=== PATIENT | female | born 1955 | race Caucasian/White ===

== ENCOUNTER → 2016-11-20 | Outpatient (CLI) | payer OTHER, BC ==
[~2016-11-20] MED LIST: ASPI-232 PO; BUPR-79 PO; CETI10CH PO; CHOL100010 PO; CITA40TA12 PO; GABA-113 PO; HYDR-3419 PO; METO-217 PO; MULT-506 PO; NAPR1TAB9 PO; OMEG10007 PO; POTA1080 PO; POTATAB2 PO; PRAV20TA PO; PRLSR20 PO; TPRSR100 PO; TRAZ50TA35 PO; VITA1TAB4 PO; VITA400C15 PO
--- NOTE | 2016-11-20 13:23 | DIAGNOSTIC IMAGING REPORT ---
KUB CLINICAL HISTORY: R32 Urinary [id number] pain. Nephrocalcinosis. COMPARISON STUDY: 07/17/2016 FINDINGS: Nonobstructive bowel pattern. Right kidney is partially obscured to overlying bowel content. Possible punctate nonobstructing upper pole left renal calcifications. Several surgical clips right upper quadrant presumably from prior cholecystectomy. IMPRESSION: Several upper pole left renal calcifications. Study is otherwise negative within limitations of overlying bowel content. The above report was generated using voice recognition software. It may contain grammatical, syntax or spelling errors. Electronically signed by: Igor Luna M.D. 11/20/2016 1:21 PM Dictated Date/Time: 11/20/2016 1:20 PM
== END | disposition home or self-care (01) ==
LOC: C.RAD 12:54
PROVIDERS: ATTEND Urology
DX: R32 Unspecified urinary incontinence (principal)

== ENCOUNTER → 2016-11-20 | Outpatient (CLI) | payer OTHER, BC ==
--- NOTE | 2016-11-20 16:39 | DIAGNOSTIC IMAGING REPORT ---
TWO VIEW CHEST CLINICAL HISTORY: Nephrolithiasis. Preoperative examination. FINDINGS: PA and lateral chest radiographs are compared to study dated 12/14/2014. The heart is top normal for projection. There is mild atherosclerotic calcification of the thoracic aorta. Chronic interstitial thickening is similar to previous. No airspace consolidation or pleural effusion is identified. There is no pneumothorax. The skeletal structures are osteopenic. The bony thorax appears intact. Cholecystectomy clips are identified. IMPRESSION: No active disease in the chest. Electronically signed by: David Chappell M.D. 11/20/2016 4:37 PM Dictated Date/Time: 11/20/2016 4:37 PM
[2016-11-20 17:15] LABS: BASO % 0.3 %; BASO ABS # 0.02 K/uL (0-0.2); COMPLETE YES; EOS % 1.5 %; HEMATOCRIT 42.4 % (37-47); IG% 0.2 %; LYMPH % 39.7 %; LYMPH ABS # 2.45 K/uL (1.2-3.4); MEAN CELL VOLUME 94.2 fL (80-100); MEAN CORPUSCULAR HEMOGLOBIN 31.1 pg (25-34); MEAN PLATELET VOLUME 9.7 fL (7.4-10.4); MONO % 9.2 %; NEUT % 49.1 %; PLATELET COUNT 245 K/uL (130-400); WHITE BLOOD COUNT 6.17 K/uL (4.8-10.8)
[2016-11-20 17:35] LABS: BLOOD UREA NITROGEN 19 mg/dl (7-18); BUN/CREATININE RATIO 23.3 (10-20); CARBON DIOXIDE 28 mmol/L (21-32); CHLORIDE 105 mmol/L (98-107); CREATININE 0.81 mg/dl (0.60-1.20); POTASSIUM 3.8 mmol/L (3.5-5.1); SODIUM 141 mmol/L (136-145)
== END | disposition home or self-care (01) ==
LOC: C.LAB 15:51
PROVIDERS: ATTEND Urology
DX: N20.0 Calculus of kidney (principal)

== ENCOUNTER → 2016-11-30 | Outpatient (CLI) | payer OTHER, BC ==
[~2016-11-30] MED LIST changes: -METO-217 PO; -POTA1080 PO; -VITA400C15 PO
--- NOTE | 2016-11-30 18:43 | DIAGNOSTIC IMAGING REPORT ---
KUB HISTORY: NEPHROLITHIASIS COMPARISON: KUB 11/20/2016. FINDINGS: The bowel gas pattern is unremarkable. There are no dilated loops of small bowel to suggest an obstruction. Cholecystectomy. Multiple pelvic calcifications remain stable and likely represent phleboliths. No definite ureteral calculi. Bilateral nephrolithiasis, unchanged. Dominant stone within the lower pole of the right kidney measures 6 mm and dominant stone within the lower pole of the left kidney measures 5 mm. No pneumoperitoneum or pneumatosis. IMPRESSION: Stable bilateral nephrolithiasis. No ureteral calculi. Electronically signed by: Avtar Varela M.D. 11/30/2016 6:42 PM Dictated Date/Time: 11/30/2016 6:40 PM
== END | disposition home or self-care (01) ==
LOC: C.RAD 17:43
PROVIDERS: ATTEND Urology
DX: N20.0 Calculus of kidney (principal)

== ENCOUNTER → 2016-12-01 | Day surgery (SDC) | payer OTHER, BC ==
[2016-11-23 09:16] VITALS: Ht 154.9 cm; Wt 76.4 kg
[~2016-12-01] VITALS: Ht 154.9 cm; Wt 76.4 kg
[~2016-12-01] MED LIST changes: +ATROPINE SULFATE 0.1 MG/ML 5ML SYR IV PRN; +CIPROFLOXACIN 400MG / D5W IV SCH; +DEXAMETHASONE SOD INJ 4 MG/ML VIAL ONE; +EpHEDrine SULFATE INJ 50 MG/ML AMP IV PRN; +FENTANYL CITRATE INJ 50 MCG/1 ML 2 ML VIAL IV PRN; +FENTANYL CITRATE INJ 50 MCG/1 ML 2 ML VIAL ONE; +HYDROCODONE/ACETAMOPHEN 5/325MG TAB PO PRN; +LACTATED RINGER'S 1000ML 1,000 ML IV SCH; +LIDOCAINE HCL 2% 2 ML VIAL (20MG/ML) ONE; +MIDAZOLAM HCL 1 MG/ML 2ML VIAL ONE; +ONDANSETRON INJ 2 MG/ML 2 ML VIAL ONE; +PROPOFOL IV EMULSION 10 MG/ML 20 ML VIAL IV ONE; +SODIUM CHLORIDE 0.9% 1000ML 1,000 ML IV SCH
--- NOTE | 2016-12-01 08:43 | History & Physical Bridge Note ---
H&P Re-Evaluation Bridge Note: I have examined the patient, reviewed the History & Physical and in the interval since the performance of the History & Physical I have noted the following changes of clinical significance: No changes noted
--- NOTE | 2016-12-01 09:59 | Discharge Instructions-SurgCtr ---
Discharge Instructions Date of Service Dec 01, 2016. Visit Reason for Visit: Stones Discharge Discharge Diagnosis / Problem: stones Discharge Goals Goal(s): Decrease discomfort, Improve disease control, Prevent Disease Progression Medications Stopped Medications Name(s): HELD BABY ASPIRIN, FISH OIL AND ALEVE FOR 10 DAYS. Activity Recommendations Activity Limitations: resume your previous activity Lifting Limitations: none Exercise/Sports Limitations: none May Resume Sexual Activity: when tolerated Shower/Bathe: no limitations Driving or Machine Use: resume 1 day after discharge Anesthesia . Post Anesthesia Instructions: If you have had General Anesthesia or IV Sedation: * Do not drive today. * Resume driving when surgeon permits. * Do not make important decisions or sign legal documents today. * Call surgeon for: 1. Temperature elevations greater than 101 degrees F. 2. Uncontrollable pain. 3. Excessive bleeding. 4. Persistent nausea and vomiting. 5. Medication intolerance (nausea, vomiting or rash). * For nausea and vomiting use only clear liquids such as: tea, soda, bouillon until nausea subsides, then gradually increase diet as tolerated. * If you have any concerns or questions, call your surgeon's office. If physician is unavailable and it is an emergency, call 911 or go to the nearest emergency room. . Instructions / Follow-Up Instructions / Follow-Up Please keep your previously scheduled follow up appointment Diet Recommendations Home Diet: no limitations, resume previous diet Pending Studies Studies pending at discharge: no Medical Emergencies . Who to Call and When: Medical Emergencies: If at any time you feel your situation is an emergency, please call 911 immediately. . Non-Emergent Contact Non-Emergency issues call your: Urologist Call Non-Emergent contact if: you have a fever, temperature is above 101.5, your pain is not controlled, your pain is worsening . . "Provider Documentation" section prepared by Kush Gupta. .
--- NOTE | 2016-12-01 10:38 | [facility] Operative Report ---
Operative Report Operative Date Dec 01, 2016. Pre-Operative Diagnosis Right Renal Stone Post-Operative Diagnosis Same as pre-op Procedure(s) Performed Right Extracorporeal Shock Wave Lithotripsy - Renal Surgeon Dr. Geovanny Gerber [employer] Surgeon(s) None Estimated Blood Loss 0mL Findings Right renal stones Specimens None Drains none Anesthesia Gen. Complication(s) None Disposition Recovery Room / PACU (stable) Indications Renal stones Description of Procedure Dania Alston was identified in the preoperative holding area, appropriate informed consent was reviewed and completed and the patient was transported to the operating suite. Upon arrival appropriate preoperative antibiotics were administered and general anesthesia induced. The patient was placed in supine position and the stone was localized under fluoroscopy. A total of 2500 shocks were delivered to the stone. There appeared to be good fragmentation of the stone. Details of this procedure can be found on the [facility] information sheet. At the conclusion of the case the patient was extubated and taken to the PACU in stable condition. There were no complications. I attest to the content of the Intraoperative Record and any orders documented therein. Any exceptions are noted below.
--- NOTE | 2016-12-01 11:14 | Anesthesia Progress Nt - [facility] ---
Anesthesia Post Op Note Date & Time Dec 01, 2016 at 11:14 Vital Signs Pain Intensity: 0 Vital Signs Past 12 Hours Date Time Temp Pulse Resp B/P (MAP) Pulse Ox O2 Delivery O2 Flow Rate FiO2 12/01/16 11:07 77 15 12/01/16 11:07 77 15 93 12/01/16 11:06 147/77 12/01/16 11:06 36.5 77 16 147/77 93 Room Air 12/01/16 11:02 79 13 12/01/16 11:02 80 13 93 12/01/16 11:01 142/82 12/01/16 10:57 78 14 12/01/16 10:57 78 14 94 12/01/16 10:56 135/82 12/01/16 10:52 79 15 12/01/16 10:52 79 15 99 12/01/16 10:51 141/80 12/01/16 10:47 78 14 12/01/16 10:47 78 14 99 12/01/16 10:46 141/82 12/01/16 10:45 78 16 12/01/16 10:45 78 16 98 12/01/16 10:41 143/88 12/01/16 10:40 81 12 12/01/16 10:40 81 12 98 12/01/16 10:36 139/83 12/01/16 10:35 78 14 12/01/16 10:35 78 14 98 12/01/16 10:32 153/87 12/01/16 10:30 37.1 79 12 153/87 96 Diffusion Mask 6 12/01/16 06:25 36.9 68 16 144/85 (104) 95 Room Air Notes Mental Status: alert / awake / arousable, participated in evaluation Pt Amnestic to Procedure: Yes Nausea / Vomiting: adequately controlled Pain: adequately controlled Airway Patency, RR, SpO2: stable & adequate BP & HR: stable & adequate Hydration State: stable & adequate Anesthetic Complications: no major complications apparent
[2016-12-01 11:20] VITALS: TEMP 36.6
[2016-12-01 11:55] VITALS: BP 145/90; PULSE 75; O2SAT 96
== END | disposition home or self-care (01) ==
LOC: X.SURG 06:13
PROVIDERS: ATTEND Urology
DX: N20.0 Calculus of kidney (principal); N20.1 Calculus of ureter; R32 Unspecified urinary incontinence; G47.33 Obstructive sleep apnea (adult) (pediatric); I10 Essential (primary) hypertension; M19.90 Unspecified osteoarthritis, unspecified site; F32.9 Major depressive disorder, single episode, unspecified; E66.9 Obesity, unspecified; Z68.32 Body mass index [BMI] 32.0-32.9, adult; Z88.1 Allergy status to other antibiotic agents; Z90.49 Acquired absence of other specified parts of digestive tract; Z90.710 Acquired absence of both cervix and uterus; Z79.82 Long term (current) use of aspirin; Z98.890 Other specified postprocedural states; Z82.49 Family history of ischemic heart disease and other diseases of the circulatory system; Z80.9 Family history of malignant neoplasm, unspecified

== ENCOUNTER → 2016-12-13 | Outpatient (CLI) | payer OTHER, BC ==
[~2016-12-13] MED LIST changes: -ATROPINE SULFATE 0.1 MG/ML 5ML SYR IV PRN; -CIPROFLOXACIN 400MG / D5W IV SCH; -DEXAMETHASONE SOD INJ 4 MG/ML VIAL ONE; -EpHEDrine SULFATE INJ 50 MG/ML AMP IV PRN; -FENTANYL CITRATE INJ 50 MCG/1 ML 2 ML VIAL IV PRN; -FENTANYL CITRATE INJ 50 MCG/1 ML 2 ML VIAL ONE; -HYDROCODONE/ACETAMOPHEN 5/325MG TAB PO PRN; -LACTATED RINGER'S 1000ML 1,000 ML IV SCH; -LIDOCAINE HCL 2% 2 ML VIAL (20MG/ML) ONE; -MIDAZOLAM HCL 1 MG/ML 2ML VIAL ONE; -ONDANSETRON INJ 2 MG/ML 2 ML VIAL ONE; -PROPOFOL IV EMULSION 10 MG/ML 20 ML VIAL IV ONE; -SODIUM CHLORIDE 0.9% 1000ML 1,000 ML IV SCH
== END | disposition home or self-care (01) ==
LOC: C.LABSPEC 17:29
PROVIDERS: ATTEND Urology
DX: N20.0 Calculus of kidney (principal)

== ENCOUNTER → 2016-12-13 | Outpatient (CLI) | payer OTHER, BC ==
--- NOTE | 2016-12-13 13:27 | DIAGNOSTIC IMAGING REPORT ---
KUB HISTORY: NEPHROLITHIASIS COMPARISON: KUB 11/30/2016. FINDINGS: The bowel gas pattern is unremarkable. There are no dilated loops of small bowel to suggest an obstruction. No ureteral calculi identified. Punctate calcifications in the deep pelvis remain stable and likely represent phleboliths. Cholecystectomy. Bilateral nephrolithiasis, unchanged. Dominant stone within the lower pole the right kidney measures 6 mm and dominant stone within the lower pole the left kidney measures 5 mm. No pneumoperitoneum or pneumatosis. IMPRESSION: Stable bilateral nephrolithiasis. No ureteral calculi. Electronically signed by: Avtar Varela M.D. 12/13/2016 1:26 PM Dictated Date/Time: 12/13/2016 1:24 PM
== END | disposition home or self-care (01) ==
LOC: C.RAD 12:56
PROVIDERS: ATTEND Urology
DX: N20.0 Calculus of kidney (principal)

== ENCOUNTER → 2017-06-12 | Outpatient (CLI) | payer OTHER, BC ==
--- NOTE | 2017-06-12 13:00 | DIAGNOSTIC IMAGING REPORT ---
KUB CLINICAL HISTORY: 62 years-old Female presenting with R32 Urinary [id number]. TECHNIQUE: Single supine view of the abdomen was obtained. COMPARISON: 12/13/2016. FINDINGS: Cholecystectomy clips noted. Moderate stool burden throughout the colon. Nonobstructive bowel gas pattern. No gross pneumoperitoneum. No radiographically apparent right renal calculi. At least two left renal calculi are again noted. No calcifications project along the courses of the ureters. Stable distribution of pelvic phleboliths. Degenerative changes of the spine. IMPRESSION: 1. Left nephrolithiasis. No right renal calculi radiographically apparent. No ureteral calculi. Electronically signed by: Ky Fernandez M.D. 06/12/2017 12:59 PM Dictated Date/Time: 06/12/2017 12:57 PM
== END | disposition home or self-care (01) ==
LOC: C.RAD 12:34
PROVIDERS: ATTEND Urology
DX: R32 Unspecified urinary incontinence (principal); N20.0 Calculus of kidney